=== PATIENT | female | born 1985 | race Hispanic/Latino ===

== ENCOUNTER 2022-02-02 16:03 | Emergency (ER) | payer SELFPAY ==
[~2022-02-02] VITALS: Ht 157.5 cm; Wt 68.0 kg
[2022-02-02] VITALS (13 sets, daily range): BP systolic 75–100; BP diastolic 33–65
[2022-02-02] MEDS ORDERED: ULTRAM50 M1 PO (19:02)
== END 2022-02-02 19:37 | disposition home or self-care (01) | DRG 159 ==
LOC: ED 16:03 → EDSEX 16:03 → ED 18:28
DX: M26.602 Left temporomandibular joint disorder, unspecified (principal)